=== PATIENT | male | born 1975 | race African-American/Black ===

== ENCOUNTER 2016-11-10 20:40 | Emergency (ER) | payer MEDICAID ==
[~2016-11-10] VITALS: Ht 185.4 cm; Wt 73.0 kg
[2016-11-10 20:45] VITALS: BP 116/67
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
[2016-11-10 21:20] VITALS: BP 116/67
== END 2016-11-10 21:20 | disposition home or self-care (01) ==
LOC: EMR 21:15
DX: T20.45XA Corrosion of unspecified degree of scalp [any part], initial encounter (principal); Y92.89 Other specified places as the place of occurrence of the external cause
CPT/HCPCS: 99282